=== PATIENT | female | born 1955 | race Asian ===

== ENCOUNTER 2017-11-17 07:09 | Emergency (ER) | payer OTHER ==
[2017-11-17 07:25] VITALS: BP 129/80
--- NOTE | 2017-11-17 07:37 | UC ---
Ear Complaint HPI - HPI Summary HPI Summary: The patient is a 61-year-old female who presents to the [facility] [place] with left ear pain and decreased hearing 1 day. Patient reports that she has chronic issues with wax buildup. She reports frequent ear infections as a child. She had the rupture of her left tympanic membrane due to a middle ear infection as a child. She has been using earwax removal drops. - History of Current Complaint Chief Complaint: UCEar Stated Complaint: EAR ACHE Time Seen by Provider: 11/17/17 07:26 Hx Obtained From: Patient Onset/Duration: Gradual Onset, Lasting Hours Severity Initially: Moderate Severity Currently: Moderate Pain Intensity: 6 Pain Scale Used: 0-10 Numeric Aggravating Factors: Other - ear drops Alleviating Factors: Nothing Associated Signs/Symptoms: Positive: Hearing Loss Related History: Prior ENT Surgery - removal of left lobe of thyroid due to nodule - Allergies/Home Medications Allergies/Adverse Reactions: Allergies Allergy/AdvReac Type Severity Reaction Status Date / Time No Known Allergies Allergy Verified 11/17/17 07:16 Home Medications: Home Medications Atorvastatin* [Lipitor 10 MG*] 10 mg PO DAILY 11/17/17 [History Confirmed ] Glaucoma Eye Gtt 11/17/17 [History] Losartan TAB* [Cozaar TAB*] 25 mg PO DAILY 11/17/17 [History Confirmed 11/17/17] PMH/Surg Hx/FS Hx/Imm Hx Previously Healthy: Yes Cardiovascular History: Hypertension - Surgical History Surgical History: Yes Surgery Procedure, Year, and Place: thyroid nodule removed- 2007. appendectomy - Family History Known Family History: Positive: Hypertension - Social History Alcohol Use: None Substance Use Type: None Smoking Status (MU): Never Smoked Tobacco Review of Systems Constitutional: Negative Skin: Negative Eyes: Negative ENT: Ear Ache Respiratory: Negative Cardiovascular: Negative Gastrointestinal: Negative Genitourinary: Negative Motor: Negative Neurovascular: Negative Musculoskeletal: Negative Neurological: Negative Psychological: Negative Is Patient Immunocompromised?: No All Other Systems Reviewed And Are Negative: Yes Physical Exam Triage Information Reviewed: Yes Appearance: Well-Appearing, No Pain Distress, Well-Nourished Vital Signs: Initial Vital Signs Temp 99.1 F 11/17/17 07:19 Pulse 72 11/17/17 07:19 Resp 16 11/17/17 07:19 BP 129/80 11/17/17 07:19 Pulse Ox 98 06/24/18 07:19 Vital Signs Reviewed: Yes Eyes: Positive: Conjunctiva Clear ENT: Negative: Hearing grossly normal, TMs normal - unable to vis due to cerumen Neck: Positive: Supple, Nontender, No Lymphadenopathy Respiratory: Positive: Lungs clear, Normal breath sounds, No respiratory distress, No accessory muscle use Cardiovascular: Positive: RRR, No Murmur Musculoskeletal: Positive: ROM Intact, No Edema Neurological: Positive: Alert Psychological Exam: Normal Re-Evaluation - Re-Evaluation First Eval Re-Evaluation Time: 07:49 Change: Improved - hearing better/pain 08/03/right TM normal/left TM red inferiorly and scarred. left tragal tenderness Ear Complaint Course/Dx - Differential Dx/Diagnosis Provider Diagnoses: cerumen impaction bilaterally. left otitis externa Discharge - Sign-Out/Discharge Documenting (check all that apply): Discharge/Admit/Transfer - Discharge Plan Condition: Stable Disposition: HOME Patient Education Materials: Otitis Externa (ED), Cerumen Impaction (ED) Referrals: No Primary Care Phys,NOPCP [Primary Care Provider] - Additional Instructions: ear recheck in 3-4 days if not better you are welcome to return here - Billing Disposition and Condition Condition: STABLE Disposition: Home
== END 2017-11-17 08:00 | disposition home or self-care (01) ==
LOC: UCEAST 07:09
DX: H60.92 Unspecified otitis externa, left ear (principal); H61.23 Impacted cerumen, bilateral; I10 Essential (primary) hypertension; Z79.899 Other long term (current) drug therapy
CPT/HCPCS: 99203; G0463